=== PATIENT | female | born 1980 | race Two or more races ===

== ENCOUNTER → 2020-02-07 | Outpatient (CLI) | payer MEDICAID ==
[~2020-02-07] MED LIST: FERR325T6 MT; IBUP-2030 PO; MULT-1116 MT
== END | disposition home or self-care (01) ==
LOC: LAB 13:18
PROVIDERS: ATTEND Obstetrics & Gynecology
DX: Z01.818 Encounter for other preprocedural examination (principal); Z11.59 Encounter for screening for other viral diseases
CPT/HCPCS: U0003-CS